=== PATIENT | male | born 1980 | race African-American/Black ===

== ENCOUNTER 2023-06-08 02:22 | Inpatient (IN) | payer BC, SELFPAY ==
[2023-06-08] MEDS ORDERED: Ondansetron ODT 4 MG TAB PO PRN (04:12)
[2023-06-08] MEDS ORDERED: Guaifenesin DM 100-10/5 ML UDCUP PO PRN (04:12)
[2023-06-08] MEDS ORDERED: Calcium Carbonate 500 MG ChewTAB PO PRN (04:12)
[2023-06-08] MEDS ORDERED: Acetaminophen 325 MG TAB PO PRN (04:12)
[2023-06-08] MEDS ORDERED: Senokot S 8.6-50 MG TAB PO PRN (04:12)
[2023-06-08 04:18] VITALS: BMI 25.2
[2023-06-08 04:43] LABS: #Monocytes 0.1 thou/uL (0.11-0.59); %Basophils 0.3 % (0.0-1.0); %Eosinophils 0.1 % (0.0-10.0); %Lymphocytes 14.4 % (21.0-51.0); %Monocytes 1.3 % (0.0-10.0); %Neutrophils 83.2 % (42.0-75.0); Hematocrit 48.7 % (42.0-52.0); Hemoglobin 15.7 g/dL (14.0-18.0); Mean Corpuscular HGB CONC 32.2 g/dL (32.0-36.0); Mean Corpuscular Hemoglobin 29.2 pg (27.0-31.0); Mean Corpuscular Volume 90.7 fl (78.0-98.0); Mean Platelet Volume 10.1 fL (7.4-10.4); Platelet Count 186 10x3/uL (130-400); Red Blood Cell (RBC) Count 5.37 mill/uL (4.70-6.10); White Blood Cell (WBC) Count 9.7 10x3/uL (4.8-10.8)
[2023-06-08] MEDS ORDERED: Electrolyte Replacement Protocol 1 EACH FS SCH (04:45)
[2023-06-08 05:13] LABS: Anion Gap 15 mmol/L (10-20); BUN (Urea Nitrogen) 19 mg/dL (8.9-20.6); Calc. Creatinine Clearance 110 mL/min (70-130); Calcium 9.8 mg/dL (7.8-10.44); Carbon Dioxide 20 mmol/L (22-29); Chloride 103 mmol/L (98-107); Estimated GFR 101; Glucose 115 mg/dL (70-105); Potassium 4.4 mmol/L (3.5-5.1); Sodium 134 mmol/L (136-145)
[2023-06-08 05:17] LABS: Troponin I 0.011 ng/mL (< 0.028)
[2023-06-08 05:47] LABS: Amphetamine Not Detected (NotDetected); Barbiturates Screen Not Detected (NotDetected); Benzodiazepine Screen Not Detected (NotDetected); Cocaine Metabolite Screen Not Detected (NotDetected); Methadone Not Detected (NotDetected); Methamphetamine Not Detected (NotDetected); Opiate Screen Not Detected (NotDetected); Oxycodone Screen Not Detected (NotDetected); Phencyclidine (PCP) Not Detected (NotDetected); THC/Cannabinoid Screen Not Detected (NotDetected); Tricyclic Screen Not Detected (NotDetected)
[2023-06-08] MEDS: Ipratropium/Albuterol 3 ML NEB NEB SCH ×4 (06:19→22:32)
[2023-06-08] MEDS: Mometasone 200 MCG/Formoterol 5 MCG 120 PUFF INHALER INH SCH ×2 (06:21→18:47)
[2023-06-08] MEDS: methylPREDNISolone Sod Succ 40 MG VIAL IVP SCH ×4 (06:34→23:57)
[2023-06-08] MEDS: Aspirin Chewable 81 MG TAB PO SCH (08:43)
[2023-06-08] MEDS: Carvedilol 6.25 MG TAB PO SCH ×2 (08:43→17:19)
[2023-06-08] MEDS: Famotidine 20 MG TAB PO SCH ×2 (08:43→20:12)
[2023-06-08] MEDS: Empagliflozin 10 MG TAB PO SCH (08:43)
[2023-06-08] MEDS: Sacubitril 24MG/Valsartan 26 MG TAB PO SCH ×2 (08:43→20:12)
[2023-06-08] MEDS ORDERED: FLU VACC QS2023-24(6MOS UP)/PF 60 MCG/0.5 ML SYRINGE IM ONE (09:00)
[2023-06-08] MEDS ORDERED: Atorvastatin Calcium 40 MG TAB PO SCH (21:00)
[2023-06-08] MEDS ORDERED: Montelukast Sodium 4 mg Chewable Tablet PO SCH (21:00)
[2023-06-08] MEDS ORDERED: Montelukast Sodium 10 mg Tablet PO SCH (21:00)
[2023-06-09] MEDS: methylPREDNISolone Sod Succ 40 MG VIAL IVP SCH (05:29)
[2023-06-09 06:11] LABS: #Monocytes 1.1 thou/uL (0.11-0.59); #Neutrophils 16.2 thou/uL (1.40-6.50); %Basophils 0.1 % (0.0-1.0); %Lymphocytes 9.7 % (21.0-51.0); %Monocytes 5.6 % (0.0-10.0); %Neutrophils 83.7 % (42.0-75.0); Hematocrit 42.4 % (42.0-52.0); Hemoglobin 13.7 g/dL (14.0-18.0); Mean Corpuscular HGB CONC 32.3 g/dL (32.0-36.0); Mean Corpuscular Hemoglobin 29.6 pg (27.0-31.0); Mean Corpuscular Volume 91.6 fl (78.0-98.0); Mean Platelet Volume 10.9 fL (7.4-10.4); Platelet Count 213 10x3/uL (130-400); RBC Distribution Width 14.6 % (11.5-14.5); Red Blood Cell (RBC) Count 4.63 mill/uL (4.70-6.10); White Blood Cell (WBC) Count 19.4 10x3/uL (4.8-10.8)
[2023-06-09 06:34] LABS: Anion Gap 13 mmol/L (10-20); BUN (Urea Nitrogen) 30 mg/dL (8.9-20.6); Calc. Creatinine Clearance 106 mL/min (70-130); Calcium 9.6 mg/dL (7.8-10.44); Carbon Dioxide 21 mmol/L (22-29); Chloride 108 mmol/L (98-107); Estimated GFR 96; Glucose 138 mg/dL (70-105); Potassium 4.6 mmol/L (3.5-5.1); Sodium 137 mmol/L (136-145)
[2023-06-09 07:37] VITALS: BP 132/79; TEMP 98.4
[2023-06-09] MEDS: Mometasone 200 MCG/Formoterol 5 MCG 120 PUFF INHALER INH SCH (08:05)
[2023-06-09] MEDS: Ipratropium/Albuterol 3 ML NEB NEB SCH (08:07)
[2023-06-09] MEDS: Sacubitril 24MG/Valsartan 26 MG TAB PO SCH (08:31)
[2023-06-09] MEDS: Carvedilol 6.25 MG TAB PO SCH (08:31)
[2023-06-09] MEDS: Aspirin Chewable 81 MG TAB PO SCH (08:31)
[2023-06-09] MEDS: Empagliflozin 10 MG TAB PO SCH (08:32)
[2023-06-09] MEDS: Famotidine 20 MG TAB PO SCH (08:32)
== END 2023-06-09 10:39 | disposition home or self-care (01) | DRG 871 ==
LOC: IMCU/EMU 03:48 → MSONC 06-09 01:46
PROVIDERS: ADMIT Student in an Organized Health Care Education/Training Program; ATTEND Family Medicine
PROC: 3E03329 Introduction of Other Anti-infective into Peripheral Vein, Percutaneous Approach (ICD-10-PCS; principal; 2023-06-08)
PROC: 5A09357 Assistance with Respiratory Ventilation, Less than 24 Consecutive Hours, Continuous Positive Airway Pressure (ICD-10-PCS; 2023-06-08)
DX: A41.89 Other specified sepsis (principal); J96.01 Acute respiratory failure with hypoxia; I50.22 Chronic systolic (congestive) heart failure; J45.901 Unspecified asthma with (acute) exacerbation; N17.9 Acute kidney failure, unspecified; B34.9 Viral infection, unspecified; I11.0 Hypertensive heart disease with heart failure; I69.328 Other speech and language deficits following cerebral infarction; F15.10 Other stimulant abuse, uncomplicated; E78.5 Hyperlipidemia, unspecified; N28.9 Disorder of kidney and ureter, unspecified; Z88.1 Allergy status to other antibiotic agents; Z71.6 Tobacco abuse counseling; F17.210 Nicotine dependence, cigarettes, uncomplicated
CPT/HCPCS: 36415; 71045; 80048; 80053; 80306; 80307; 81001; 82805; 83605; 83880; 84145; 84484; 85025; 93005; 93306; 94640; 94660; 94760; J1650; J2920; J2930; J3475; J7620